=== PATIENT | male | born 1960 | race Caucasian/White ===

== ENCOUNTER 2023-12-04 09:40 | Emergency (ER) | payer OTHER ==
[2023-12-04] MEDS ORDERED: Acetaminophen 500 MG TAB ONE (11:19)
[2023-12-04 11:24] LABS: PTT 50.3 sec (22.9-36.1); Prothrombin Time 31.6 sec (12.0-14.7)
== END 2023-12-04 11:42 | disposition home or self-care (01) ==
LOC: ERS 09:40
DX: S90.852A Superficial foreign body, left foot, initial encounter (principal); X58.XXXA Exposure to other specified factors, initial encounter
CPT/HCPCS: 36415; 85610; 85730